=== PATIENT | male | born 1985 | race Caucasian/White ===

== ENCOUNTER 2020-01-26 16:10 | Emergency (ER) | payer SELFPAY ==
[~2020-01-26] VITALS: Ht 170.2 cm; Wt 68.0 kg
[2020-01-26 16:12] VITALS: BP 157/108
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
--- NOTE | 2020-01-26 16:26 | NUR ---
SECURITY CALLED FOR BELONGINGS.
--- NOTE | 2020-01-26 16:53 | NUR ---
Pt refusing blood draw at this time. Dr. Whiting will be made aware when she is back on the unit.
--- NOTE | 2020-01-26 17:09 | NUR ---
Patient being evaluated by Dr. Whiting at bedside.
[2020-01-26] MEDS ORDERED: ONDANSETRON 4 MG ODT PO ONE (17:15)
[2020-01-26 17:22] LABS: BARBITURATE, URINE NEGATIVE ng/ml (NEG <=200)
[2020-01-26 17:23] LABS: BENZODIAZEPINE, URINE NEGATIVE ng/mL (NEG <=200); CANNABINOID, URINE NEGATIVE ng/mL (NEG <=50); COCAINE, URINE NEGATIVE ng/mL (NEG <=300); OPIATE, URINE NEGATIVE ng/mL (NEG <=2000); PHENCYCLIDINE SCREEN,URINE NEGATIVE ng/mL (NEG <=25)
--- NOTE | 2020-01-26 17:25 | NUR ---
Dr. Whiting notified regarding pt refused the lab work.
--- NOTE | 2020-01-26 17:29 | NUR ---
Pt refused to take Zofran 4mg PO stating he took the same medication on the ambulance and it did not help but made him more nauseous. Addendum: 01/26/[address] at [address] [facility] [address] Whiting made aware.
--- NOTE | 2020-01-26 17:59 | NUR ---
DINNER PROVIDED TO PT AT BEDSIDE. THE PSYCHIATRIST IS EVALUATING PT VIA TELEMED.
--- NOTE | 2020-01-26 18:06 | NUR ---
Psychiatrist evaluating patient via telepsychiatry.
--- NOTE | 2020-01-26 19:16 | NUR ---
Pt report given to BRAYAN Luo. Transfer of care at this time.
--- NOTE | 2020-01-26 19:19 | NUR ---
REPORT RECIVED BY COSTA SCHMIDT. CONTINUATION OF CARE.
[2020-01-26 19:21] VITALS: BP 154/98
--- NOTE | 2020-01-26 19:21 | NUR ---
Patient discharged with v/s stable. Written and verbal after care instructions given and explained. Patient verbalized understanding. Ambulatory with steady gait. All questions addressed prior to discharge. Advised to follow up with PMD.
== END 2020-01-26 19:21 | disposition home or self-care (01) ==
LOC: MED 16:10
DX: F15.10 Other stimulant abuse, uncomplicated (principal); R44.3 Hallucinations, unspecified; R11.0 Nausea; F12.90 Cannabis use, unspecified, uncomplicated
CPT/HCPCS: 80305; 99283; Q0162